=== PATIENT | male | born 1940 | race Caucasian/White ===

== ENCOUNTER 2016-05-06 16:55 | Emergency (ER) | payer MEDICARE ==
[~2016-05-06] VITALS: Ht 180.3 cm; Wt 91.8 kg
[2016-05-06 17:01] VITALS: BP 169/82; PULSE 45; RESP 20; O2SAT 97
--- NOTE | 2016-05-06 17:12 | ED.REPORT ---
HPI-Abd Pain M 40 and Over Date of Service May 06, 2016 ED Provider: Sammy Jim MD Pt is a 76 y/o male w/ a hx of GERD, GI bleed, alcoholic cirrhosis of the liver , presenting to the ED c/o intermittent, diffuse abdominal pain onset 3 weeks ago. He c/o associated nausea and vomiting yesterday, frequent belching. He denies CP, SOB, lightheadedness, fever. He has not had a BM in at least 2 days and he regularly has 1/day. He was recently seen at [facility] for this 6 days ago for abdominal pain and during that visit a CTA chest was performed and notable for mediastinal adenopathy and liver cirrhosis. Chest x-ray was negative. He has about 3-4 alcoholic drinks/day. Abdominal surgeries: cholecystectomy Nursing Notes Stated Complaint: ABD PAIN Chief Complaint: Male Abdominal Pain Nursing Notes Reviewed: Yes Allergies: Uncoded Allergies: CEPHALOSPORIN (Allergy, Unknown, 01/28/09) Scheduled Ondansetron ODT (Ondansetron ODT) 4 Mg Tab.rapdis 4 MG PO QID Pantoprazole DR (Protonix) 20 Mg Tablet 20 MG PO BID General Time Seen by MD: 17:12 Chief Complaint Abdominal pain Hx Obtained From: Patient Arrived By: Walk-in Sudden in Onset?: No Onset Occurred: More than a week ago... (3 weeks) Symptom Duration: Intermittent Progression since Onset: Intermittent Location: : Diffuse Quality: Painful Severity: Current: No pain currently Severity: Maximum: Severe Recent Healthcare: Recent doctor visit, Recent testing, Previous diagnosis, Prior workup Past Medical History Past Medical History GERD GI bleed Alcoholic cirrhosis of the liver Mediastinal adenopathy - unclear etiology as of 05/06/16 Denies: Coronary artery disease, Diabetes mellitus Past Surgical History Cholecystectomy, mastoidectomy Smoking History Former Smoker Social History Alcohol Use: 3-5 per day Drug Use: Denies drug use Other Social History: Ambulatory Status Independent Review of Systems Constitutional: Denies: Chills, Fever Respiratory: Denies: Shortness of breath Cardiovascular: Denies: Chest pain GI: Reports: Abdominal pain, Belching, Nausea, Vomiting Complete sys rev & neg: except as marked. Neurologic: Denies: Lightheaded Physical Exam Initial Vital Signs Vital Signs (First) Date Time Temp Pulse Resp B/P Pulse Ox O2 Delivery O2 Flow Rate FiO2 05/06/16 17:01 36.8 45 20 169/82 97 05/06/16 21:12 Room Air Initial VS: Reviewed, Vital signs abnormal Head / Eyes: Atraumatic, Normocephalic, PERRL ENT: Mucous membranes moist, Conjunctiva normal, No scleral icterus Neck: Supple, Full range of motion Extremities: Vascular intact, Neuro intact, No swelling, No tenderness Skin: Warm, Dry, No cyanosis Neurologic: Alert, Oriented, Nonfocal Psychiatric: Mood/affect normal, Behavior normal, Normal thought content General/Constitutional: Awake, Alert, No acute distress, Cooperative, Not toxic appearing Respiratory / Chest: Atraumatic, Breath sounds NL, Breath sounds = bilat, No respiratory distress, No rales, No rhonchi, No wheezing, No retractions, No stridor, No chest tenderness, No chest wall deformity, No crepitus Cardiovascular: Regular rhythm, Heart sounds NL, No gallop, No murmurs, No rubs , Cap refill not delayed, Peripheral circulation NL Heart Rate / Rhythm: Positive: Bradycardia Abdomen: Atraumatic, Soft, BS normoactive, No palpable mass Back: Full range of motion, Painless range of motion Interpretation & Diagnostics Interpretation & Diagnostics: Abdomen CT: IMPRESSION: Enlarged paraesophageal lymph nodes near the GE junction. Please see the report from recent chest CT dated 04/30/16 for better characterization Branching foci of gas within the left hepatic lobe and central liver probably representing pneumobilia, especially if prior sphincterectomy or ERCP has been performed. Please correlate clinically to exclude differential possibility of portal venous gas. This appears new since 04/30/16 Normal appendix. 9 mm nodule in the right lung base. Recommend followup with noncontrast chest CT in 3 months to exclude metastatic/malignant possibilities Dictated by: Ramana Jamison M.D. on 05/06/2016 at 20:19 Approved by: Ramana Jamison M.D. on 05/06/2016 at 20:26 Lab Results Interpretation Result Diagram: 05/06/16 1730 05/06/16 1730 Test 05/06/16 17:30 05/06/16 19:04 White Blood Count 7.9th/mm3 (3.8-10.1) Red Blood Count 3.07mil/mm3 (4.40-5.80) Hemoglobin 9.4g/dL (13.8-17.2) Hematocrit 28.8% (41.0-50.0) Mean Corpuscular Volume 93.8fL (81-100) Mean Corpuscular Hemoglobin 30.6pg (27.0-35.0) Mean Corpuscular Hemoglobin Concent 32.6% (32.0-37.0) Red Cell Distribution Width 14.9% (12.3-15.4) Platelet Count 340bil/L (150-400) Neutrophils (%) (Auto) 72.5% (40-74) Lymphocytes (%) (Auto) 15.7% (14-46) Monocytes (%) (Auto) 9.8% (4-12) Eosinophils (%) (Auto) 1.1% (0-5) Basophils (%) (Auto) 0.6% (0-3) Sodium Level 136mEq/L (134-144) Potassium Level 4.7mEq/L (3.5-5.2) Chloride Level 99mEq/L (97-108) Carbon Dioxide Level 23mmol/L (18-29) Blood Urea Nitrogen 20mg/dL (8-27) Creatinine 1.60mg/dL (0.76-1.27) Estimat Glomerular Filtration Rate 45mL/min (>59) Glucose Level 107mg/dL (60-99) Lactic Acid Level 1.0mmol/L (0.4-2.0) Calcium Level 9.0mg/dL (8.5-10.1) Magnesium Level 2.1mg/dL (1.6-2.6) Total Bilirubin 0.3mg/dL (0.0-1.2) Aspartate Amino Transf (AST/SGOT) 24U/L (0-50) Alanine Aminotransferase (ALT/SGPT) 19U/L (0-44) Alkaline Phosphatase 93U/L (25-160) Troponin T < 0.010ug/L (0.0-0.011) Total Protein 7.4g/dL (6.4-8.4) Albumin 3.8g/dL (3.4-5.0) Lipase 41U/L (13-60) Urine Color Yellow (YELLOW) Urine Appearance Clear (CLEAR,HAZY) Urine pH 7.0 (5.0-8.0) Urine Specific Butler 1.010 (1.003-1.035) Urine Protein Negativemg/dL (NEG,TRACE) Urine Glucose (UA) Negativemg/dL (NEGATIVE) Urine Ketones Negativemg/dL (NEGATIVE) Urine Occult Blood Negative (NEGATIVE) Urine Nitrite Negative (NEGATIVE) Urine Bilirubin Negative (NEGATIVE) Urine Urobilinogen Normalmg/dL (NORMAL) Urine Leukocyte Esterase Negative (NEGATIVE) Urine RBC 0-2/hpf (0-2) Urine WBC 0-5/hpf (0-5) Urine Epithelial Cells Few/hpf (NONE-MOD) Urine Crystals Amorphous urates (NONE Urine Bacteria None/hpf (NONE-FEW) Urine Hyaline Casts None/lpf (NONE) Urine Granular Casts None seen (NONE SEEN) Urine Waxy Casts None seen (NONE SEEN) Urine Red Blood Cell Casts None seen (NONE SEEN) Urine White Blood Cell Casts None seen (NONE SEEN) Urine Mucus None seen (None Seen) Urine Trichomonas None seen (NONE SEEN) Urine Yeast None (NONE SEEN) Urinalysis Comment None Urine Culture Reflexed Not indicated ECG Interpretation ECG Interpretation: Ventricular bigeminy rate 100 RBBB Time: 17:34 Interpreted by: ED physician Normal ECG Interpretation: No acute ischemic changes Re-Eval/Medical Decision Source of Hx: Old records Time of Eval: 20:38 Patient Status: Condition improved Re-Evaluation/Progress Note: Pt rechecked, who is resting comfortably. He is informed of CT results and plan for gastroenterology consult. Time of Eval: 20:45 Patient Status: Condition improved Re-Evaluation/Progress Note: Pt rechecked and informed of GI consult. The plan for discharge with GI follow up is discussed. The pt understands and agrees with the plan. All questions are addressed at this time. Consultation : Referral / Consult Name: Lucero Alberts MD Call Returned at: 20:42 Environmental Engineering Aide: Agrees with eval, Agrees with plan Note: Consulted with Dr. Alberts, gastroenterology, regarding pt's case. Dr. Alberts recommends GI follow up. Counseled Regarding: Diagnosis, Lab results, Need for follow-up, When/why to return to ED Discharge & Departure Primary Impression: Epigastric pain Disposition: Home Vital Signs - All Vital Signs Date Time Temp Pulse Resp B/P Pulse Ox O2 Delivery O2 Flow Rate FiO2 2/2/17 21:12 36.8 86 20 154/76 97 Room Air 05/06/16 17:01 36.8 45 20 169/82 97 )( All Prior VS Reviewed: Yes Condition: Stable Patient Instructions: Gastritis (ED) Additional Instructions: Emergency Department evaluation included interview, examination, labs, review of past records, CT of abdomen and pelvis. Case was discussed with a GI specialist. We advised starting Protonix once a day. May use ondansetron as needed for nausea and vomiting.. Follow up with a gastroenterology specialist, either keep the appointment you have already or call to make one. Return to emergency department for fevers, uncontrolled vomiting or severe pain Referrals: Maximiliano Guzman MD (PCP) Lucero Alberts MD Attestation Portions of this note were transcribed by Hiro Gonzalez. Dr. Diandra Bates personally performed the history, physical exam and medical decision-making; I reviewed and confirmed the accuracy of the information in the transcribed note. Signed by Ira Goldsmith, 05/06/16 - 1730 Portions of this note were transcribed by Markel Corona I, Dr. Slack personally performed the history, physical exam and medical decision-making; I reviewed and confirmed the accuracy of the information in the transcribed note. Signed by: Ira Guadarrama, 05/06/16 and 20:46. copies to: Lucero Alberts MD; Maximiliano Guzman MD, Donald L MD May 06, 2016 17:12 HIRO GONZALEZ May 06, 2016 17:23 MARKEL CORONA May 06, 2016 20:47
[2016-05-06 17:41] LABS: BASOPHILS % (AUTO) 0.6 % (0-3); EOSINOPHILS % (AUTO) 1.1 % (0-5); MONOCYTES % (AUTO) 9.8 % (4-12); Mean Corpuscular Hemoglobin 30.6 pg (27.0-35.0); Mean Corpuscular Volume 93.8 fL (81-100); NEUTROPHILS % (AUTO) 72.5 % (40-74); Platelet Count 340 bil/L (150-400)
[2016-05-06] MEDS ORDERED: 0.9% Sodium Chloride 1,000 ML IV ONE (18:10)
[2016-05-06 18:11] LABS: Lipase 41 U/L (13-60); Magnesium 2.1 mg/dL (1.6-2.6)
[2016-05-06 18:15] LABS: TROPONIN T < 0.010 ug/L (0.0-0.011)
[2016-05-06] MEDS: Ondansetron 2 mg/mL 2 mL Inj IVPUSH PRN ×2 (18:17→21:10)
[2016-05-06] MEDS: HYDROmorphone 0.5 mg/0.5 mL iSecure Syringe IVPUSH PRN ×2 (18:57→21:10)
[2016-05-06 19:16] LABS: APPEARANCE,URINE CLEAR (CLEAR,HAZY); COLOR,URINE YELLOW (YELLOW); OCCULT BLOOD,URINE NEGATIVE (NEGATIVE); UROBILINOGEN,URINE NORMAL (NORMAL)
--- NOTE | 2016-05-06 20:27 | DRSVH ---
PROCEDURE: CT ABDOMEN AND PELVIS WITH CONTRAST ([id number]) INDICATIONS: abd pain TECHNIQUE: After the administration of oral and intravenous contrast, 5 mm thick sections acquired from the diap hragms to the symphysis. 5 mm thick coronal and sagittal reformats were performed. For radiation do se reduction, the following was used: automated exposure control, adjustment of mA and/or kV accordi ng to patient size. COMPARISON: [facility], CT, CTA CHEST, 04/30/2016, 7:20 PM. FINDINGS: Image quality: Excellent. ABDOMEN: Lung bases: 9 mm pleural-based nodule at the right lung base on image 9 series 5, image 47 series 3. Diffuse bibasilar scarring and atelectasis. Multiple enlarged paraesophageal lymph nodes near the GE junction Solid organs: Numerous areas of branching gas within the left lobe and central liver presumably pneu mobilia (versus portal venous gas). Gallbladder surgically absent. Biliary tree and pancreas grossly unremarkable. Spleen negative. No adrenal nodule. Bilateral cortical atrophy. No hydronephrosis. Peritoneum and bowel: Stomach, small bowel, and colon loops are normal in caliber and wall thickness . No free fluid or air. Appendix appears normal. Incidental colonic diverticulosis. Nodes and vessels: No retroperitoneal or mesenteric adenopathy. Aorta and inferior vena cava are no rmal in caliber. Miscellaneous: No ventral hernias. PELVIS: Genitourinary: Bladder wall thickness is normal. Miscellaneous: No inguinal hernias or adenopathy. Bones: No suspicious bony lesions. No vertebral body compression fractures. IMPRESSION: Enlarged paraesophageal lymph nodes near the GE junction. Please see the report from recent chest CT dated 04/30/16 for better characterization Branching foci of gas within the left hepatic lobe and central liver probably representing pneumobili a, especially if prior sphincterectomy or ERCP has been performed. Please correlate clinically to exc lude differential possibility of portal venous gas. This appears new since 04/30/16 Normal appendix. 9 mm nodule in the right lung base. Recommend followup with noncontrast chest CT in 3 months to exclu de metastatic/malignant possibilities Dictated by: Ramana Jamison M.D. on 05/06/2016 at 20:19 Approved by: Ramana Jamison M.D. on 05/06/2016 at 20:26
[2016-05-06] MEDS ORDERED: PANT20T PO (20:55)
[2016-05-06] MEDS ORDERED: ONDA4TAB12 PO (20:55)
[2016-05-06 21:12] VITALS: BP 154/76; PULSE 86; RESP 20; O2SAT 97
== END 2016-05-06 21:15 | disposition home or self-care (01) ==
LOC: SED 16:55
DX: R10.13 Epigastric pain (principal); R11.2 Nausea with vomiting, unspecified; R14.2 Eructation; K21.9 Gastro-esophageal reflux disease without esophagitis; I10 Essential (primary) hypertension; Z90.49 Acquired absence of other specified parts of digestive tract; Z87.19 Personal history of other diseases of the digestive system; Z87.891 Personal history of nicotine dependence; Z88.1 Allergy status to other antibiotic agents
CPT/HCPCS: 36415; 74177; 80053; 81000; 83605; 83690; 83735; 84484; 85025; 93005; 96361; 96374; 96375; 96376; 99285; J1170; J2405; J7030; Q9967